=== PATIENT | female | born 1970 | race Caucasian/White ===

== ENCOUNTER → 2023-08-16 15:29 | Outpatient (REF) | payer OTHER, SELFPAY ==
[2023-08-16 15:23] LABS: % Basophils 0.8 % (0-2); % Eosinophils 2.2 % (0-6); % Immature Granulocytes 0.4 % (0-0.5); % Lymphocytes 21.8 % (20.5-51.1); % Monocytes 8.8 % (1.7-9.3); Absolute Basophils 0.1 10^3/uL (0-0.2); Absolute Eosinophils 0.2 10^3/uL (0-0.7); Absolute Lymphocytes 1.6 10^3/uL (1.2-3.4); Absolute Monocytes 0.6 10^3/uL (0.1-0.6); Absolute Neutrophils 4.8 10^3/uL (1.4-6.5); Hematocrit 39.8 % (37.0-47.0); Hemoglobin 13.1 g/dL (12.0-16.0); Mean Corp Hgb Conc. 32.9 g/dL (33.0-37.0); Mean Corpuscular Hgb 30.9 pg (27.0-31.0); Mean Corpuscular Volume 93.9 fL (81.0-99.0); Nucleated Red Blood Cells % 0 %; Platelet Count 309 10^3/uL (130-400); Red Blood Cell Count 4.24 10^6/uL (4.20-5.40); White Blood Cell Count 7.3 10^3/uL (4.8-10.8)
== END ==
LOC: OIDL 15:29
PROVIDERS: ATTENDING PHYSICIAN Internal Medicine Hematology & Oncology
DX: D50.9 Iron deficiency anemia, unspecified (principal)
CPT/HCPCS: 82306; 85025

== ENCOUNTER → 2023-09-21 06:28 | Day surgery (SDC) | payer OTHER, SELFPAY | LOC: GI 06:28 | PROVIDERS: ATTENDING PHYSICIAN Internal Medicine Gastroenterology | DX: D50.0 Iron deficiency anemia secondary to blood loss (chronic) (principal); R19.7 Diarrhea, unspecified; K64.0 First degree hemorrhoids; K63.3 Ulcer of intestine; D12.3 Benign neoplasm of transverse colon | CPT/HCPCS: 45385; 45380; 88305 ==

== ENCOUNTER → 2024-07-21 07:25 | Outpatient (REF) | payer OTHER, SELFPAY | LOC: HWWDC 07:25 | PROVIDERS: ATTENDING PHYSICIAN Family Medicine | DX: Z12.31 Encounter for screening mammogram for malignant neoplasm of breast (principal) | CPT/HCPCS: 77063; 77067 ==

== ENCOUNTER 2024-11-18 11:47 | Emergency (ER) | payer OTHER, SELFPAY ==
[2024-11-18 11:49] VITALS: BP 201/124
--- NOTE | 2024-11-18 12:35 | ED.GENMED ---
History of Present Illness
General
Chief Complaint: Abdominal Pain
Source: patient
Exam Limitations: none
Time Seen by Provider: 11/18/24 11:58
History of Present Illness
History of Present Illness:
54yoF with a history of hypertension, hypothyroidism, and anemia presenting for evaluation of abdominal pain. Patient started taking Saxenda about 3 months ago for weight loss. She has been experiencing some epigastric discomfort since starting
this which she takes Tums for. She woke up yesterday with worsening pain in her epigastric region and doubled her over in pain. She was able to go to work and pain improved with Tylenol and hot tea. She woke up again with severe pain and decided
to come to the ED. Pain radiates to the lower abdomen as well as the chest. She also reports diarrhea and states that her stool has been very light-colored. No fevers or vomiting. Only prior abdominal surgery was a plastic surgery in the 1970s
to fix an indentation from an umbilical cord as an infant.
Phy Exam
General Physical Exam
General Presentation: well appearing and no apparent distress
General Skin: warm and dry
General Habitus: normal
General Mental: alert
ENT Exam
ENT Exam: normocephalic
Cardiovascular Exam
Cardiovascular Exam: regular rate/rhythm and no murmur
Pulmonary Exam
Pulmonary Exam: lungs clear, no respiratory distress, no rales, no crackles, no rhonchi and no wheezing
Gastrointestinal Exam
Gastrointestinal Exam: soft, non distended and other (+Epigastric tenderness. Abdomen soft, non-distended. No rebound or guarding.)
Neurological Exam
Neurological Exam: alert
[place] Coma Scale
Eye Opening: Spontaneous
Verbal Response: Oriented
Motor Response: Obeys Commands
GCS Total Score: 15
Skin Exam
Skin Exam: normal color and warm/dry
Psychiatric Exam
Psychiatric Exam: normal mood/affect
Course
Orders/Labs/Results
Orders:
Orders
11/18/24 12:33
Electrocardiogram (*1) Urgent
Reason for Study: Abdominal Pain
EKG- Treatment ONCE
0.9% Sodium Chloride 1000 ml [Nss] 1,000 ml IV BOLUS
Diazepam [Valium] 5 mg PO NOW STA
11/18/24 12:34
CT Abd/pelvis W Iv Cont Urgent
Comment:
Reason For Exam: epigastric pain
11/18/24 12:47
Complete Blood Count/With Diff Urgent
Comprehensive Metabolic Panel Urgent
Lipase Urgent
Troponin I Urgent
Abnormal Lab Results
11/18/24
12:47
MCH 31.6 H pg
(27.0-31.0)
Lymphocytes % 19.6 L %
(20.5-51.1)
11/18/24 12:47
11/18/24 12:47
Vital Signs
Initial and Last Documented VS:
Initial Vital Signs
Temp Pulse Resp BP Pulse Ox
98.3 F 72 16 201/124 100
11/18/24 11:49 11/18/24 11:49 11/18/24 11:49 11/18/24 11:49 11/18/24 11:49
Last Documented Vital Signs
Temp Pulse Resp BP Pulse Ox
98.3 F 72 16 168/91 100
11/18/24 11:49 11/18/24 11:49 11/18/24 11:49 11/18/24 15:10 11/18/24 12:37
MDM/Problems Addressed
Differential Diagnosis Includes:
54yoF here with abd pain. C/o epigastric discomfort x several weeks. Worsening x 24 hours. On Saxenda for weight loss. BP 201/124 in triage. No signs of peritonitis on abdominal exam. Differential diagnosis includes but is not limited to:
pancreatitis, biliary colic, cholecystitis, gastritis, PUD
Initial ED plan: Check abdominal labs, troponin/EKG, and CT abdomen.
*Pulse Oximetry
SaO2: 100
Oxygen Mode of Delivery: Room air
Patient hypoxic: no (100%)
*EKG
Interpreted by ED Provider?: Yes
EKG Intrepretation Date: 11/18/24
Heart Rate: 65
Rate: normal
Rhythm: sinus
[place]: normal axis
Interval: normal interval
QRS Pattern: normal QRS
Ischemia: no ischemia
*Critical Care Note
Total Time (30-74mins, 75-104mins- exclusive of procedures): Not Applicable
Update Note
Update Note:
Labs unremarkable including normal white count, lipase, LFTs, renal function. EKG shows NSR without ischemic changes and troponin WNL. CT shows evidence of mild enteritis and a 1.2 cm rim-calcified splenic artery aneurysm. No other acute findings on
imaging. Patient feeling improved on reassessment and BP improved to 168/91. Unclear etiology of symptoms. Will treat for possible gastritis with pantoprazole and Carafate. She was advised to f/u with GI as well as vascular surgery for the aneurysm.
ED return precautions reviewed and she was discharged in stable condition.
ED Attending Note
-
Portions of this chart may have been created with voice recognition software.� Occasional wrong word or��sound alike� substitutions may have occurred due to the inherent limitations of voice recognition software.
Discharge Plan
Departure
Patient Disposition: Home (Routine Discharge)
Date of Disposition: 11/18/24
Time of Disposition: 15:42
Patient with high blood pressure during this ER visit?: Yes
Discharge Problem:
Epigastric abdominal pain, Splenic artery aneurysm
Instructions: Abdominal Pain
Prescriptions:
New
pantoprazole [Protonix] 40 mg tablet,delayed release (DR/EC)
40 mg PO DAILY Qty: 30 0RF
sucralfate [Carafate] 100 mg/mL suspension
10 ml PO ACHS Qty: 400 0RF
No Action
cholecalciferol (vitamin D3) 1,000 UNITS tablet
2,000 units PO DAILY Qty: 28 0RF
levothyroxine 150 mcg Tablet
150 mcg PO DAILY
ergocalciferol (vitamin D2) [Vitamin D2] 1,250 mcg (50,000 unit) Capsule
50,000 unit PO WEEKLY
losartan 25 mg Tablet
25 mg PO DAILY
metoprolol succinate 25 mg Tablet Extended Release 24 Hr
25 mg PO DAILY
Bowel Prep
1 unit PO PER PROTOCOL
Rx Instructions:
[id number], and duccolax prep started 08/13/22 at 1500 and completed 08/14/22 0000
ferrous sulfate
1 unit IV ONCE
Referrals:
Alicia Mcghee PA-C [Family Provider, Internal Medicine]
King Chi III, MD [Active, Vascular Surgery]
Dee Dee Anthony MD [Active, Gastroenterology]
Activity Restrictions/Additional Instructions:
Take Protonix and Carafate as prescribed.
Please call on Wednesday to schedule follow-up appointments with gastroenterology and vascular surgery. Return to the ER with any new or worsening symptoms.
Interventions
Interventions:
*Risk Screen - Suicide Last Done: 11/18/24 11:49
*General Assessment Last Done: 11/18/24 13:00
*Neglect/Abuse Screening Last Done: 11/18/24 11:49
*ED- Fall Risk Assessment Last Done: 11/18/24 11:49
[facility] Assessment Last Done: 11/18/24 13:00
Discharge Date and Time
Print Language: FRENCH
[2024-11-18 13:00] VITALS: BMI 42.3
[2024-11-18] MEDS: VALIUM 5 MG PO (13:05)
[2024-11-18] MEDS: NSS 1000 IV (13:05)
[2024-11-18 13:11] LABS: Hematocrit 39.7 % (37.0-47.0); Hemoglobin 13.7 g/dL (12.0-16.0); Mean Corp Hgb Conc. 34.5 g/dL (33.0-37.0); Mean Corpuscular Volume 91.7 fL (81.0-99.0); Nucleated Red Blood Cells % 0 %; Platelet Count 295 10^3/uL (130-400); Red Cell Dist. Width 13.0 % (11.5-14.5)
[2024-11-18 13:27] LABS: ALT (SGPT) 16 U/L (0-35); AST (SGOT) 22 U/L (14-36); Albumin 4.1 g/dl (3.5-5.0); Alkaline Phosphatase 83 U/L (38-126); Blood Urea Nitrogen 17 mg/dl (7-17); Calcium 9.7 mg/dl (8.4-10.2); Carbon Dioxide 27 mmol/L (22-30); Chloride 107 mmol/L (98-107); Glucose 91 mg/dl (70-99); Lipase 127 U/L (23-300); Potassium 4.0 mmol/L (3.5-5.1); Sodium 138 mmol/L (135-145); Total Protein 7.0 g/dl (6.3-8.2); eGFR > 60.00
[2024-11-18 13:38] LABS: Troponin I < 0.012 ng/ml
[2024-11-18 15:10] VITALS: BP 168/91
== END 2024-11-18 15:50 | disposition home or self-care (01) ==
LOC: EMR 11:47
PROVIDERS: Physician Assistant; EMERGENCY PHYSICIAN Emergency Medicine; FAMILY PHYSICIAN Physician Assistant
DX: R10.13 Epigastric pain (principal); I72.8 Aneurysm of other specified arteries; I10 Essential (primary) hypertension; E03.9 Hypothyroidism, unspecified
CPT/HCPCS: 99284; 96360; 96361; 74177; 80053; 83690; 84484; 85025; 93005; Q9967

== ENCOUNTER → 2025-03-12 07:16 | Outpatient (REF) | payer OTHER, SELFPAY | LOC: HWRCS 07:16 | PROVIDERS: ATTENDING PHYSICIAN Internal Medicine Cardiovascular Disease; FAMILY PHYSICIAN Family Medicine | DX: I77.810 Thoracic aortic ectasia (principal) | CPT/HCPCS: 93306 ==